=== PATIENT | male | born 1955 | race American Indian/Alaskan Native ===

== ENCOUNTER 2018-03-08 00:47 | Emergency (ER) | payer OTHER, MEDICARE ==
[2018-03-08] MEDS ORDERED: TYLENOL PO ONE (03:05)
--- NOTE | 2018-03-08 05:11 | XRay Report ---
FINAL REPORT PROCEDURE: XR ANKLE 3+V LT TECHNIQUE: LEFT ankle radiographs, AP, lateral, and oblique views. CPT 11244 HISTORY: left ankle pain COMPARISON: No prior studies are available for comparison. FINDINGS: Fracture (s) and/or Dislocation(s): None. Alignment: Normal. Joint space(s): Normal. Soft tissues: There is generalized soft tissue swelling.. Bone mineralization: Normal. Foreign bodies: None. Calcaneal spurring: There is a small inferior calcaneal spur.. IMPRESSION: There is no acute bony abnormality. Low.
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
[2018-03-08 06:21] VITALS: BP 138/70
== END 2018-03-08 06:21 | disposition home or self-care (01) ==
LOC: ED 00:47
DX: S09.90XA Unspecified injury of head, initial encounter (principal); S19.9XXA Unspecified injury of neck, initial encounter; M25.572 Pain in left ankle and joints of left foot; V49.49XA Driver injured in collision with other motor vehicles in traffic accident, initial encounter; Y93.89 Activity, other specified; Y92.89 Other specified places as the place of occurrence of the external cause; Y99.8 Other external cause status; F17.200 Nicotine dependence, unspecified, uncomplicated
CPT/HCPCS: 70450; 72125